=== PATIENT | female | born 1985 | race American Indian/Alaskan Native ===

== ENCOUNTER 2017-07-13 14:17 | Emergency (ER) | payer OTHER ==
[2017-07-13 14:30] VITALS: BP 144/95
--- NOTE | 2017-07-13 15:01 | XRay Report ---
LEFT ANKLE, 3 views: History: Left ankle pain, injury. Bone mineralization is normal. No acute osseous abnormality or joint pathology is identified. There is mild diffuse soft tissue swelling. Moderate plantar spur. IMPRESSION: Soft tissue swelling. Plantar spur. No acute osseous injury.
--- NOTE | 2017-07-13 17:36 | Emergency Department Report ---
Entered by MARY SUTTON, acting as scribe for ALEN PALM PA. ED Lower Extremity HPI - General Chief Complaint: Extremity Injury, Lower Stated Complaint: HURT ANKLE Time Seen by Provider: 07/13/17 16:30 Source: patient Mode of arrival: Ambulatory Limitations: No Limitations - History of Present Illness Initial Comments: 31 y/o female with no significant PMHx presents to the ED c/o left ankle pain that began last night. Patient states she slipped on wet grass last night and subsequently injured her left ankle. Rates pain an 8/10 in severity, which she describes as aching and burning in quality. Aggravated with movement, palpation , and weight bearing, and alleviated with immobilization. Reports associated left ankle swelling, but she denies numbness, and tingling. LMP 03/20/2017. Complaint: ankle injury -: Last night Injury: Ankle: Left Type of Injury: unknown Place: street/outdoors Severity: severe Severity scale (0 -10): 8 Improves With: immobilization Worsens With: weight bearing, movement, palpation Context: other (slipped on wet grass) Associated Symptoms: swelling (LT ankle), able to partially bear weight, ambulatory. denies: snap/pop sensation, numbness, tingling - Related Data Previous Rx's Medication Instructions Recorded Last Taken Type Cyclobenzaprine [Flexeril] 10 mg PO QHS PRN #24 tablet 07/13/17 Unknown Rx Ibuprofen [Motrin] 800 mg PO Q8HR PRN #30 tablet 07/13/17 Unknown Rx Allergies Allergy/AdvReac Type Severity Reaction Status Date / Time No Known Allergies Allergy Unverified 07/13/17 14:27 ED Review of Systems Comment: All other systems reviewed and negative Constitutional: denies: chills, fever Eyes: denies: eye pain, eye discharge, vision change ENT: denies: ear pain, throat pain Respiratory: denies: cough, orthopnea, shortness of breath, SOB with exertion, SOB at rest, stridor, wheezing Cardiovascular: denies: chest pain, palpitations, dyspnea on exertion, orthopnea , edema, syncope, paroxysmal nocturnal dyspnea Endocrine: no symptoms reported Gastrointestinal: denies: abdominal pain, nausea, vomiting, diarrhea Genitourinary: denies: urgency, dysuria, discharge Musculoskeletal: joint swelling (LT ankle), arthralgia (LT ankle pain). denies : back pain, myalgia Skin: denies: rash, lesions Neurological: denies: headache, weakness, numbness, paresthesias ED Past Medical Hx - Past Medical History Previous Medical History?: No - Surgical History Past Surgical History?: No - Family History Family history: no significant - Social History Smoking Status: Current Every Day Smoker - Medications Home Medications: Home Medications Medication Instructions Recorded Confirmed Last Taken Type Cyclobenzaprine [Flexeril] 10 mg PO QHS PRN #24 tablet 07/13/17 Unknown Rx Ibuprofen [Motrin] 800 mg PO Q8HR PRN #30 tablet 07/13/17 Unknown Rx ED Physical Exam - General Limitations: No Limitations General appearance: alert, in no apparent distress - Head Head exam: Present: atraumatic, normocephalic - Eye Eye exam: Present: normal appearance, PERRL, EOMI Pupils: Present: normal accommodation - ENT ENT exam: Present: normal exam, mucous membranes moist, normal external ear exam - Neck Neck exam: Present: normal inspection, full ROM. Absent: tenderness, meningismus, lymphadenopathy - Respiratory Respiratory exam: Present: normal lung sounds bilaterally. Absent: respiratory distress, wheezes, rales, rhonchi, stridor, chest wall tenderness, accessory muscle use, decreased breath sounds - Cardiovascular Cardiovascular Exam: Present: regular rate, normal rhythm, normal heart sounds. Absent: systolic murmur, diastolic murmur - GI/Abdominal GI/Abdominal exam: Present: soft, normal bowel sounds. Absent: distended, tenderness - Extremities Exam Extremities exam: Present: full ROM, normal capillary refill. Absent: normal inspection, tenderness, pedal edema, joint swelling, calf tenderness - Expanded Lower Extremity Exam Left Hip exam: Present: normal inspection, full ROM, external rotation, internal rotation, pelvic stability. Absent: tenderness, swelling, abrasion, laceration , ecchymosis, deformity, crepidus, dislocation, erythema, shortening Upper Leg exam: Present: normal inspection, full ROM. Absent: tenderness, swelling, abrasion, laceration, ecchymosis, deformity, crepidus, dislocation, erythema Knee exam: Present: normal inspection, full ROM, full knee extension. Absent: tenderness, swelling, abrasion, laceration, ecchymosis, deformity, crepidus, dislocation, erythema, effusion, pain w/ pronation/supination, posterior draw sign, pain/laxity with valgus, pain/laxity with varus Lower Leg exam: Present: normal inspection, full ROM. Absent: tenderness, swelling, abrasion, laceration, ecchymosis, deformity, crepidus, dislocation, erythema, palpable cord, Traci's sign Ankle exam: Present: full ROM. Absent: normal inspection, tenderness, swelling , abrasion, laceration, ecchymosis, deformity, crepidus, dislocation, erythema, anterior draw sign Foot/Toe exam: Present: normal inspection, full ROM. Absent: tenderness, swelling, abrasion, laceration, ecchymosis, deformity, crepidus, dislocation, erythema, amputation, puncture wound, foreign body, calcaneal tenderness, tenderness at base of 5th metatarsal, nail avulsion, subungual hematoma Neuro vascular tendon exam: Present: no vascular compromise. Absent: pulse deficit, abnormal cap refill, motor deficit, sensory deficit, tendon deficit, extremity cold to touch, pallor, abnormal 2-point discrimination, decreased fine /light touch, foot drop, peroneal nerve deficit, significant pain with passive ROM of distal joint Gait: Positive: observed and limited by pain - Back Exam Back exam: Present: normal inspection, full ROM. Absent: tenderness - Neurological Exam Neurological exam: Present: alert, oriented X3, normal gait (limited due to LT ankle pain) - Psychiatric Psychiatric exam: Present: normal affect, normal mood - Skin Skin exam: Present: warm, dry, intact. Absent: rash ED Course Vital Signs 07/13/17 14:27 Temperature 98.7 F Pulse Rate 107 H Respiratory 15 Rate Blood Pressure 144/95 O2 Sat by Pulse 97 Oximetry ED Lower Extremity MDM - Medical Decision Making 31 year-old female presents with acute left ankle pain ED course: X-ray taken of left ankle. X-ray shows no acute fracture with soft tissue present along with a plantar spur Vital signs stable patient is in no acute or respiratory distress. Discussed findings with patient about diagnoses. Discussed treatment in ED with patient Discussed with patient to apply heat, and soak foot in warm water with Epsom salt. Discussed with patient to do left ankle exercises to avoid foot from becoming stiff Discussed with patient to follow up with PCP as referred, and to return to the ED if symptoms return or worsen. Patient states understanding and will follow instructions. Pt verbally states understanding and will comply to follow up. ED Disposition Clinical Impression: Left ankle strain Qualifiers: Encounter type: initial encounter Qualified Code(s): S96.912A - Strain of unspecified muscle and tendon at ankle and foot level, left foot, initial encounter Disposition: TO HOME OR SELFCARE Is pt being admited?: No Does the pt Need Aspirin: No Condition: Stable Instructions: Ankle Sprain (ED), Arthralgia (ED), Heat Pack Application (ED) Prescriptions: Cyclobenzaprine [Flexeril] 10 mg PO QHS PRN #24 tablet PRN Reason: Muscle Spasm Ibuprofen [Motrin] 800 mg PO Q8HR PRN #30 tablet PRN Reason: Pain Referrals: PRIMARY CARE,MD [Primary Care Provider] - 3-5 Days [facility] [Outside] - 3-5 Days [facility] [Outside] - 3-5 Days Forms: Work/School Release Form(ED), Accompanied Note Time of Disposition: 16:49 This documentation as recorded by the LESLEY finney JASMINE,accurately reflects the service I personally performed and the decisions made by ,ALEN PALM PA.
== END 2017-07-13 17:02 | disposition home or self-care (01) ==
LOC: ED 14:17
DX: S96.912A Strain of unspecified muscle and tendon at ankle and foot level, left foot, initial encounter (principal); F17.200 Nicotine dependence, unspecified, uncomplicated; W01.0XXA Fall on same level from slipping, tripping and stumbling without subsequent striking against object, initial encounter; Y93.9 Activity, unspecified; Y92.9 Unspecified place or not applicable; Y99.9 Unspecified external cause status

== ENCOUNTER 2018-11-19 16:54 | Emergency (ER) | payer SELFPAY ==
[2018-11-19 17:15] VITALS: BP 145/87
[2018-11-19] MEDS ORDERED: NORCO 5/325 PO STA (18:08)
--- NOTE | 2018-11-19 19:45 | XRay Report ---
FINAL REPORT EXAM: XR SPINE CERVICAL 2-3V HISTORY: neck pain TECHNIQUE: 3 views of the cervical spine PRIORS: None. FINDINGS: The vertebral bodies are normal in height. There is reversal of cervical lordosis centered at C5. Oth erwise, vertebral alignment is normal. The disc spaces are well preserved. There is no evidence of fr acture or subluxation. The soft tissues are unremarkable. IMPRESSION: Reversal of cervical lordosis may be due to muscle spasm or positional factors. No evidence of acute fracture.
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
== END 2018-11-19 20:46 | disposition home or self-care (01) ==
LOC: ED 16:54
DX: M62.838 Other muscle spasm (principal); F17.200 Nicotine dependence, unspecified, uncomplicated; V89.2XXA Person injured in unspecified motor-vehicle accident, traffic, initial encounter; Y93.89 Activity, other specified; Y99.8 Other external cause status; Y92.410 Unspecified street and highway as the place of occurrence of the external cause
CPT/HCPCS: 72040; 99283

== ENCOUNTER 2019-11-26 15:24 | Emergency (ER) | payer SELFPAY ==
[2019-11-26] MEDS ORDERED: ACETAMINOPHEN 500 MG TAB PO ONE (18:43)
[2019-11-26] MEDS ORDERED: predniSONE 20 MG TAB PO ONE (18:43)
[2019-11-26] MEDS ORDERED: IBUPROFEN 600 MG TAB PO ONE (18:43)
--- NOTE | 2019-11-26 19:14 | XRay Report ---
CHEST PA AND LATERAL VIEWS INDICATION: MAIN: cough, fever; flu like symptoms x 2 weeks; smoker. COMPARISON: None. FINDINGS: Support devices: None. Heart: Within normal limits. Lungs/Pleura: No acute pulmonary or pleural findings. IMPRESSION: 1. No significant abnormality. Signer Name: Ilia Howard MD Signed: 11/26/2019 7:09 PM Workstation Name: [id number]
--- NOTE | 2019-11-26 19:55 | Emergency Department Report ---
- General Chief Complaint: Upper Respiratory Infection Stated Complaint: FLU SYM Source: patient Mode of arrival: Ambulatory Limitations: No Limitations - History of Present Illness Initial Comments: This is a 34-year-old -[place] female with no past medical history who presented to the ED with nasal and sinus congestion, frontal sinus pressure, sore throat, diffuse body aches and pains, frontal headache, diffuse body aches and pains, intermittent fever and chills, dry cough with lack of appetite and generalized weakness for the last 1 week. Patient stated that her has had similar symptoms as well as her child. Patient denies dizziness, chest pain, shortness of breath, nausea, vomiting, abdominal pain, change in vision, dysuria, urinary frequency and urgency, diarrhea or vaginal bleeding. MD Complaint: fever, cough, sore throat, rhinorrhea, nasal congestion, sinus pain -: Sudden, week(s) (1) Severity: severe Severity scale (0 -10): 7 Quality: sharp, aching Consistency: constant Improves With: nothing Worsens With: nothing Context: sick contacts Associated Symptoms: denies other symptoms, fever, chills, myalgias, headache, rhinorrhea, nasal congestion, sore throat, cough. denies: diaphoresis, stiff neck, chest pain, shortness of breath, abdominal pain, nausea, diarrhea, dysuria, confusion, weight loss, hoarseness Treatments Prior to Arrival: Acetaminophen - Related Data Previous Rx's Medication Instructions Recorded Last Taken Type Cyclobenzaprine [Flexeril] 10 mg PO QHS PRN #24 tablet 07/13/17 Unknown Rx Ibuprofen [Motrin] 800 mg PO Q8HR PRN #30 tablet 07/13/17 Unknown Rx Ketorolac [Toradol] 10 mg PO Q6H PRN #15 tablet 11/19/18 Unknown Rx methOCARBAMOL [Robaxin] 750 mg PO Q8H PRN #21 tablet 11/19/18 Unknown Rx traMADoL [Ultram] 50 mg PO Q6HR PRN #20 tablet 11/19/18 Unknown Rx Amoxicillin [Trimox CAP] 500 mg PO Q8H #30 capsule 11/26/19 Unknown Rx Benzonatate [Tessalon Perles] 100 mg PO Q8HR #30 capsule 11/26/19 Unknown Rx Cetirizine HCl [Zyrtec 10mg tab] 10 mg PO DAILY #24 tablet 11/26/19 Unknown Rx Ibuprofen [Motrin] 800 mg PO Q8HR PRN #20 tablet 11/26/19 Unknown Rx methylPREDNISolone [Medrol 4MG 4 mg PO DAILY #21 tab.ds.pk 11/26/19 Unknown Rx DOSEPAK (21 tabs)] Allergies Allergy/AdvReac Type Severity Reaction Status Date / Time No Known Allergies Allergy Unverified 07/13/17 14:27 ED Review of Systems ROS: Stated complaint: FLU SYM Other details as noted in HPI Constitutional: chills, fever, malaise, weakness Eyes: denies: eye pain, eye discharge, vision change ENT: throat pain, congestion. denies: ear pain Respiratory: cough. denies: shortness of breath, wheezing Cardiovascular: denies: chest pain, palpitations Endocrine: no symptoms reported Gastrointestinal: denies: abdominal pain, nausea, vomiting, diarrhea Genitourinary: denies: urgency, dysuria, discharge Musculoskeletal: denies: back pain, joint swelling, arthralgia Skin: denies: rash, lesions Neurological: headache. denies: weakness, paresthesias Psychiatric: denies: anxiety, depression Hematological/Lymphatic: denies: easy bleeding, easy bruising ED Past Medical Hx - Social History Smoking Status: Current Every Day Smoker Substance Use Type: None - Medications Home Medications: Home Medications Medication Instructions Recorded Confirmed Last Taken Type Cyclobenzaprine [Flexeril] 10 mg PO QHS PRN #24 tablet 07/13/17 Unknown Rx Ibuprofen [Motrin] 800 mg PO Q8HR PRN #30 tablet 07/13/17 Unknown Rx Ketorolac [Toradol] 10 mg PO Q6H PRN #15 tablet 11/19/18 Unknown Rx methOCARBAMOL [Robaxin] 750 mg PO Q8H PRN #21 tablet 11/19/18 Unknown Rx traMADoL [Ultram] 50 mg PO Q6HR PRN #20 tablet 11/19/18 Unknown Rx Amoxicillin [Trimox CAP] 500 mg PO Q8H #30 capsule 11/26/19 Unknown Rx Benzonatate [Tessalon Perles] 100 mg PO Q8HR #30 capsule 11/26/19 Unknown Rx Cetirizine HCl [Zyrtec 10mg tab] 10 mg PO DAILY #24 tablet 11/26/19 Unknown Rx Ibuprofen [Motrin] 800 mg PO Q8HR PRN #20 tablet 11/26/19 Unknown Rx methylPREDNISolone [Medrol 4MG 4 mg PO DAILY #21 tab.ds.pk 11/26/19 Unknown Rx DOSEPAK (21 tabs)] ED Physical Exam - General Limitations: No Limitations General appearance: alert, in no apparent distress - Head Head exam: Present: atraumatic, normocephalic, normal inspection - Eye Eye exam: Present: normal appearance, PERRL, EOMI Pupils: Present: normal accommodation - ENT ENT exam: Present: normal orophraynx, mucous membranes moist, normal external ear exam, other (grossly congested nasal passages; palpable frontal sinus tenderness) - Neck Neck exam: Present: normal inspection, full ROM. Absent: tenderness, lymphadenopathy, thyromegaly - Respiratory Respiratory exam: Present: normal lung sounds bilaterally. Absent: respiratory distress, wheezes, rales, chest wall tenderness, accessory muscle use, decreased breath sounds, prolonged expiratory - Cardiovascular Cardiovascular Exam: Present: normal rhythm, tachycardia, normal heart sounds. Absent: systolic murmur, diastolic murmur, rubs, gallop - GI/Abdominal GI/Abdominal exam: Present: soft, normal bowel sounds. Absent: tenderness, hyperactive bowel sounds, hypoactive bowel sounds - Extremities Exam Extremities exam: Present: normal inspection, full ROM, normal capillary refill. Absent: pedal edema, joint swelling - Back Exam Back exam: Present: normal inspection, full ROM - Neurological Exam Neurological exam: Present: alert, oriented X3, CN II-XII intact, normal gait, reflexes normal - Psychiatric Psychiatric exam: Present: normal affect, normal mood - Skin Skin exam: Present: warm, dry, intact, normal color. Absent: rash ED Course Vital Signs 11/26/19 11/26/19 11/26/19 15:57 18:59 20:22 Temperature 100.1 F H 98.7 F Pulse Rate 109 H 92 H Respiratory 18 18 17 Rate Blood Pressure 140/94 Blood Pressure 116/67 [Left] O2 Sat by Pulse 95 97 Oximetry ED Medical Decision Making - Radiology Data Radiology results: report reviewed, image reviewed Chest x-ray shows no acute cardiopulmonary abnormalities or pneumonitis. - Medical Decision Making This is a 34-year-old -[place] female with no past medical history who presented to the ED with nasal and sinus congestion, frontal sinus pressure, sore throat, diffuse body aches and pains, frontal headache, diffuse body aches and pains, intermittent fever and chills, dry cough with lack of appetite and generalized weakness for the last 1 week. In the ED, patient is alert and oriented 3 and is not in distress but tachycardic and febrile in triage. Patient was treated for fever and pain in the ED and also given oral steroids. Chest x-ray shows no acute cardiopulmonary abnormalities or pneumonitis. On reevaluation, patient's fever and tachycardia resolved and patient was discharged home on medications and advised to follow-up with her primary care physician in 7-10 days for reevaluation. Patient was was advised to return to the ED immediately if symptoms get worse. - Differential Diagnosis flu; pneumonia; strep pharyngitis; URI; Bronchitis Critical care attestation.: If time is entered above; I have spent that time in minutes in the direct care of this critically ill patient, excluding procedure time. ED Disposition Clinical Impression: Acute non-recurrent frontal sinusitis, Acute upper respiratory infection, Fever and chills, Flu-like symptoms Acute bronchitis Qualifiers: Bronchitis organism: unspecified organism Qualified Code(s): J20.9 - Acute bronchitis, unspecified Disposition: DC-01 TO HOME OR SELFCARE Is pt being admited?: No Does the pt Need Aspirin: No Condition: Stable Instructions: Fever in Adults (ED), Upper Respiratory Infection (ED), Acute Bronchitis (ED), Acute Bacterial Rhinosinusitis (ED) Additional Instructions: Take medications with food, drink plenty of fluids and follow-up with your primary care physician in 7-10 days for reevaluation. Return to the ED immed iately if symptoms get worse. Prescriptions: methylPREDNISolone [Medrol 4MG DOSEPAK (21 tabs)] 4 mg PO DAILY #21 tab.ds.pk Ibuprofen [Motrin] 800 mg PO Q8HR PRN #20 tablet PRN Reason: Pain , Severe (7-10) Benzonatate [Tessalon Perles] 100 mg PO Q8HR #30 capsule Amoxicillin [Trimox CAP] 500 mg PO Q8H #30 capsule Cetirizine HCl [Zyrtec 10mg tab] 10 mg PO DAILY #24 tablet Referrals: [facility] [Outside] - 7-10 days Time of Disposition: 20:02 Print Language: PORTUGUESE
[2019-11-26 20:23] VITALS: BP 116/67
== END 2019-11-26 20:24 | disposition home or self-care (01) ==
LOC: ED 15:24
DX: J01.10 Acute frontal sinusitis, unspecified (principal); J06.9 Acute upper respiratory infection, unspecified; J20.9 Acute bronchitis, unspecified; F17.200 Nicotine dependence, unspecified, uncomplicated; Z79.899 Other long term (current) drug therapy
CPT/HCPCS: 71046; 99283; J7512